=== PATIENT | male | born 1955 | race Caucasian/White ===

== ENCOUNTER 2021-05-14 05:23 | Inpatient (IN) | payer MEDICARE, OTHER, SELFPAY ==
[2021-05-14] VITALS (55 sets, daily range): BP systolic 77–128; BP diastolic 45–83; PULSE 38–56; RESP 4–22; TEMP 36.3–36.8; O2SAT 90–100; BMI 37.7
--- NOTE | 2021-05-14 | USCV_ITS ---
Transthoracic Echo John Blue Age: 65 Gender: M : 1955 Exam Date: 05/14/2021 08:40 Ordering Phys: Dung Ma Technologist: Exam Location[place] [facility] [place]: Unstable angina BP: 94 / 51 HR: 41 Rhythm: Sinus Technical Quality: Adequate MEASUREMENTS (Male / Female) Normal Values 2D ECHO LV Diastolic Diameter PLAX 4.0 cm 4.2 - 5.9 / 3.9 - 5.3 cm LV Systolic Diameter PLAX 2.8 cm IVS Diastolic Thickness 1.1 cm 0.6 - 1.0 / 0.6 - 0.9 cm IVS Systolic Thickness 1.3 cm LVPW Diastolic Thickness 1.1 cm 0.6 - 1.0 / 0.6 - 0.9 cm LVPW Systolic Thickness 1.4 cm LVOT Diameter 2.1 cm LV Ejection Fraction 2D Teich 51.4 % LV Ejection Fraction MOD 2C 67.4 % LV Ejection Fraction 2C AL 67.2 % LA Diameter 4.4 cm LA Width 4.1 cm LA Height 5.3 cm RA Width 3.4 cm RA Height 5.4 cm Aorta at Sinotubular Diameter 2.9 cm DOPPLER AV Peak Velocity 122.0 cm/s LVOT Peak Velocity 105.0 cm/s AV Area Cont Eq vti 2.7 cm squared AV Area Cont Eq pk 2.9 cm squared MV Area PHT 5.0 cm squared Mitral E to A Ratio 1.3 MV E' Velocity 47.0 cm/s Mitral E to MV E' Ratio 10.0 Mitral E to LV E' Lateral Ratio 8.8 Mitral E to LV E' Septal Ratio 11.9 TR Peak Velocity 265.0 cm/s TR Peak Gradient 28.1 mmHg TV Peak E Velocity 82.0 cm/s Right Atrial Pressure 3.0 mmHg Pulmonary Artery Systolic Pressu 31.1 mmHg FINDINGS Left Ventricle Normal left ventricular size, systolic function and wall thickness, with no regional wall motion abnormalities. Left ventricular ejection fraction is estimated at 60 %. Grade II diastolic dysfunction, moderately elevated filling pressures. Abnormal (paradoxical) septal motion consistent with postoperative status. Right Ventricle Normal right ventricular size and systolic function. Right ventricular systolic pressure 36 mmHg. Right Atrium Normal right atrial size. Aneurysmal interatrial septum. No ASD or PFO by color Doppler. Right atrial pressure estimated at 8 mmHg. Left Atrium Mildly increased left atrial size. Mitral Valve Structurally normal mitral valve. No mitral valve stenosis. No mitral valve regurgitation. Aortic Valve Aortic valve not well visualized. Probably trileaflet aortic valve. No aortic valve stenosis. No aortic valve regurgitation. Tricuspid Valve Structurally normal tricuspid valve. No tricuspid valve stenosis. Mild tricuspid valve regurgitation. Pulmonic Valve Structurally normal pulmonic valve. No pulmonary valve stenosis. Trace pulmonary valve regurgitation. Pericardium No pericardial effusion. Aorta Normal size aortic root and proximal ascending aorta. Normal- sized inferior vena cava with decreased CONCLUSIONS 1. Normal left ventricular size, systolic function and wall thickness, with no regional wall motion abnormalities. Left ventricular ejection fraction is estimated at 60 %. Grade II diastolic dysfunction, moderately elevated filling pressures. 2. Normal right ventricular size and systolic function. 3. Pulmonary artery pressure estimated at 36 mmHg. 4. Mild tricuspid valve regurgitation. 5. No prior similar studies to compare. Cande Gee MD (Electronically Signed) Final Date: 14 May 2021 10:57 S
--- NOTE | 2021-05-14 05:24 | XRR_ITS ---
PROCEDURE INFORMATION: Exam: XR Chest Exam date and time: 05/14/2021 5:24 AM Age: 65 years old Clinical indication: Pain; Chest pressure; Prior surgery; Surgery date: 6+ months; Surgery type: Cabg; Additional info: Cp TECHNIQUE: Imaging protocol: XR of the chest. Views: 1 view. COMPARISON: No relevant prior studies available. FINDINGS: Lungs: Minimal left lung base atelectasis or other infiltrate. Pleural spaces: Unremarkable. No pleural effusion. No pneumothorax. Heart/Mediastinum: No cardiomegaly. Bones/joints: Previous median sternotomy. XR/XR chest 1V portable [id number] IMPRESSION: Minimal left lung base atelectasis or other infiltrate. Radiation Dose CTDIVOL = (mGy): DLP = (mGy-cm)
--- NOTE | 2021-05-14 05:24 | ECG_ITS ---
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 Measurements Intervals [place] Rate: 44 P: 34 NV: 190 QRS: -4 QRSD: 94 T: 23 QT: 468 QTc: 403 Interpretive Statements SINUS BRADYCARDIA ST DEVIATION AND MODERATE T-WAVE ABNORMALITY, CONSIDER ANTERIOR ISCHEMIA No previous ECG available for comparison Electronically Signed On 05-14-2021 21:04:45 CDT by Cande Gee M.D. [id number]
--- NOTE | 2021-05-14 05:28 | W.ED.CHESTPA ---
Documented by User: Bianca Kern MD 05/14/21 05:34 HPI - Chest Pain General: Chief Complaint: Chest Pain Stated Complaint: chest pain Time Seen by Provider: 05/14/21 05:23 Source: patient and EMS Mode of arrival: EMS Limitations: no limitations History of Present Illness: HPI narrative: 65-year-old male has a history of coronary artery disease and had a CABG 4 years ago. States that over the last 2 days has been having chest pain that worsened tonight. He states that this pain started tonight roughly 2 hours ago with a pressure type pain center of his chest that went to his right neck. Denies any nausea or diaphoresis. He took a nitro at home and took the pain down to a 5 and had not noted nitro in route by EMS it took it down to 0. He also had aspirin in route. He denies any worsening factors. Denies any cough or fever. Associated symptoms: Deny abdominal pain, dyspnea, fever(s), nausea or vomiting Review of Systems Const: Denies: fever(s), chills, body aches or change in appetite Eyes: Denies: blurry vision or eye discomfort ENMT: Denies: throat pain or dental pain Card: Reports: chest pain Resp: Denies: dyspnea GI: Denies: abdominal pain, nausea, vomiting or diarrhea : Denies: dysuria Musc: Denies: neck pain or back pain Skin/Breast: Denies: rash Neuro: Denies: headache(s) Psych: Denies: depression Tristian/Lymph: Denies: easy bruising All/Imm: Denies: urticaria Physical Exam Const: COMMON NORMALS: no acute distress, patient oriented x3 and healthy appearing HENMT: COMMON NORMALS: normocephalic and atraumatic HEAD & SCALP: normocephalic and atraumatic Eye: COMMON NORMALS: Equal, round and reactive pupils present and EOMs intact bilaterally PUPIL: Yes Equal, round and reactive pupils present Neck/C-Spine: COMMON NORMALS: full ROM and supple Chest: COMMONS NORMALS: normal inspection of the chest and normal palpation of entire chest wall Resp: COMMON NORMALS: normal respiratory effort, No retractions, No use of accessory muscles and clear to auscultation bilaterally AUSCULTATION: clear to auscultation bilaterally Cardio: COMMON NORMALS: regular rate, regular rhythm and No murmurs present (Cardio) RATE: regular rate RHYTHM: regular rhythm GI: COMMON NORMALS: Normal to inspection, nondistended, normoactive bowel sounds present, Soft to palpation, non-tender and no masses PALPATION: Yes Soft to palpation Extremity: COMMON NORMALS: normal to inspection and full ROM Neuro: COMMON NORMALS: patient oriented x3, moves all extremities and no focal motor deficits Psych: COMMON NORMALS: mental status grossly normal, Normal thought process present and cooperative THOUGHT PROCESS: Normal thought process present Skin: COMMON NORMALS: no rashes or lesions noted and no wounds GENERAL SKIN EXAM: no rashes or lesions noted Course Vital Signs: Vital signs: Vital Signs Temperature 97.7 F 05/14/21 05:23 Pulse Rate 44 L 05/14/21 06:15 Respiratory Rate 22 H 05/14/21 06:50 Blood Pressure 100/55 05/14/21 06:15 Pulse Oximetry 98 05/14/21 06:15 MDM - Chest Pain Lab Data: Labs: Lab Results 05/14/21 05/14/21 05/14/21 05:25 05:25 05:25 WBC 7.3 10^3/uL 10^3/ uL (4.0-10.0) RBC 4.58 10^6/uL 10^6 /uL (4.1-5.3) Hgb 15.1 g/dL g/dL (11.7-16.6) Hct 45.1 % % (42.0-52.0) MCV 98.5 fl H fl (80-94) MCH 33.0 pg pg (28.0-34.0) MCHC 33.5 g/dL g/dL (30.0-36.0) RDW 12.7 % % (12.1-15.1) Plt Count 180 10^3/cmm 10^3 /cmm (130-400) MPV 11.0 fL H fL (7.4-10.4) Neut % (Auto) 56.7 % % Lymph % (Auto) 26.7 % % [place] % (Auto) 12.3 % % Eos % (Auto) 3.6 % % Baso % (Auto) 0.4 % % Neut # (Auto) 4.13 10^3/uL 10^3 /uL (1.8-7.7) Lymph # (Auto) 2.0 10^3/uL 10^3/ uL (0.8-4.8) [place] # (Auto) 0.9 10^3/uL 10^3/ uL (0.2-0.9) Eos # (Auto) 0.3 10^3/uL 10^3/ uL (0.0-0.8) Baso # (Auto) 0.0 10^3/uL 10^3/ uL (0.0-0.1) Nucleated RBC % (a uto) 0 % % Nucleated RBCs # 0.0 /100WBC /100W BC PT INR APTT Sodium 137 mmol/L mmol/L (136-145) Potassium 4.0 mmol/L mmol/L (3.5-5.1) Chloride 102 mmol/L mmol/L (98-107) Carbon Dioxide 24 mmol/L mmol/L (22-29) Anion Gap 15.0 (5-19) BUN 23 mg/dL mg/dL (8-23) Creatinine 1.3 mg/dL H mg/dL (0.7-1.2) GFR Calculation 55.8 mL/min L mL/ min (90-130) Glucose 90 mg/dL mg/dL (65-115) Calculated Osmolal ity 287 mOsm/kg mOsm/ kg (285-295) Calcium 8.9 mg/dL mg/dL (8.5-10.5) Total Bilirubin 0.3 mg/dL mg/dL (0.15-1.2) AST 13 U/L U/L (0-40) ALT 6 U/L U/L (0-41) Alkaline Phosphata se 51 IU/L IU/L (40-130) Troponin T Baselin e 10 ng/L ng/L (0-15) NT-Pro-B Natriuret Pep Total Protein 6.2 g/dL L g/dL (6.6-8.7) Albumin 3.9 g/dL g/dL (3.5-5.2) Globulin 2.3 g/dL g/dL (1.3-4.6) Lipase 05/14/21 05/14/21 05:25 05:25 WBC RBC Hgb Hct MCV MCH MCHC RDW Plt Count MPV Neut % (Auto) Lymph % (Auto) [place] % (Auto) Eos % (Auto) Baso % (Auto) Neut # (Auto) Lymph # (Auto) [place] # (Auto) Eos # (Auto) Baso # (Auto) Nucleated RBC % (a uto) Nucleated RBCs # PT 12.60 SECONDS SEC ONDS (12.1-14.9) INR 0.91 (0.8-1.2) APTT 25.9 SECONDS SECO NDS (23.9-36.7) Sodium Potassium Chloride Carbon Dioxide Anion Gap BUN Creatinine GFR Calculation Glucose Calculated Osmolal ity Calcium Total Bilirubin AST ALT Alkaline Phosphata se Troponin T Baselin e NT-Pro-B Natriuret Pep 193 pg/mL H pg/mL (0-125) Total Protein Albumin Globulin Lipase 158 U/L H U/L (13-60) EKG Data^: EKG 1: Attestation: I personally reviewed and interpreted this EKG as follows: EKG interpretation date: 05/14/21 EKG interpretation time: 05:30 Interpretation: sinus genoveva hr [address] elevation qrs 89 qtc 418 Discharge Plan Discharge Patient Disposition: Admitted As Inpatient Clinical Impression: Unstable angina pectoris Chest pain Qualifiers: Chest pain type: other chest pain Qualified Code(s): R07.89 - Other chest pain Condition: Stable Coding Level of Care Code ED Dice Table Person for Chg Fwd Exam Comprehensive Documented by User: Dung Ma 05/14/21 09:32 HPI - Chest Pain General: Chief Complaint: Chest Pain Stated Complaint: chest pain Time Seen by Provider: 05/14/21 05:23 Course Vital Signs: Vital signs: Vital Signs Temperature 97.7 F 05/14/21 05:23 Pulse Rate 44 L 05/14/21 06:15 Respiratory Rate 22 H 05/14/21 06:50 Blood Pressure 100/55 05/14/21 06:15 Pulse Oximetry 98 05/14/21 06:15 MDM - Chest Pain MDM Narrative: Medical decision making narrative: This patient was signed out to myself Dr. Ma by Dr. Kern at 0550 on 05/14/2021 patient just arrived emergency department currently reporting chest pains we will start the patient resting nitroglycerin to see if there is any improvement of his pain or discomfort his EKG was obtained revealed a sinus bradycardia rate of [address] segment elevations nor depressions appreciated. We will continue to follow. On assessment, patient still complaining of chest pain despite being provided nitroglycerin which she became slightly hypotensive 80s over 50s. Patient has been consistently bradycardic on arrival current heart rate is 46 patient reports that he has a pre-existing history of this before from his previous heart attack approximately 5 years ago. 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 In which per his request if he would need to be admitted he like to be transferred back there. Patient continues to have pain currently rated at a 4 out of 10 pain scale. Will be providing him some intravenous morphine as well as IV fluids to maintain a reasonable blood pressure greater than 80/50. I will continue to follow with anticipation need for transfer or admission. Notified by nursing staff the patient's had another episode of what appears to be going to a first-degree block with his heart rate dropped down to the 30 range which patient did have episodes of increased chest pain and discomfort. First cardiac troponins come back unremarkable however patient has been developing symptoms suggestive of unstable angina. He reports that the pain comes and goes away but she does report that the nitroglycerin that he took prior to arrival took the pain away just for a temporary amount of time which he has returned currently patient does report pain but no palpitations at this time due to patient having a high heart score of 6 as well as his cardiac symptoms will need to be admitted or transferred. Spoke to [facility] per patient's request as his shop assistant is Dr. Monk in which reports they have no current open telemetry cardiac beds available which they are currently boarding over 35 people in the emergency department. Will discuss with the patient with potential need for acceptance admission here to our facility. The patient remains in guarded condition at this time. Spoke to on-call cardiology as well as the hospitalist Dr. Aaron recommends admission to the intensive care unit for further evaluation management. Medical records will be obtained from [facility] as well as an echocardiogram be obtained. Lab Data: Labs: Lab Results 05/14/21 05/14/21 05/14/21 05:25 05:25 05:25 WBC 7.3 10^3/uL 10^3/ uL (4.0-10.0) RBC 4.58 10^6/uL 10^6 /uL (4.1-5.3) Hgb 15.1 g/dL g/dL (11.7-16.6) Hct 45.1 % % (42.0-52.0) MCV 98.5 fl H fl (80-94) MCH 33.0 pg pg (28.0-34.0) MCHC 33.5 g/dL g/dL (30.0-36.0) RDW 12.7 % % (12.1-15.1) Plt Count 180 10^3/cmm 10^3 /cmm (130-400) MPV 11.0 fL H fL (7.4-10.4) Neut % (Auto) 56.7 % % Lymph % (Auto) 26.7 % % [place] % (Auto) 12.3 % % Eos % (Auto) 3.6 % % Baso % (Auto) 0.4 % % Neut # (Auto) 4.13 10^3/uL 10^3 /uL (1.8-7.7) Lymph # (Auto) 2.0 10^3/uL 10^3/ uL (0.8-4.8) [place] # (Auto) 0.9 10^3/uL 10^3/ uL (0.2-0.9) Eos # (Auto) 0.3 10^3/uL 10^3/ uL (0.0-0.8) Baso # (Auto) 0.0 10^3/uL 10^3/ uL (0.0-0.1) Nucleated RBC % (a uto) 0 % % Nucleated RBCs # 0.0 /100WBC /100W BC PT INR APTT Sodium 137 mmol/L mmol/L (136-145) Potassium 4.0 mmol/L mmol/L (3.5-5.1) Chloride 102 mmol/L mmol/L (98-107) Carbon Dioxide 24 mmol/L mmol/L (22-29) Anion Gap 15.0 (5-19) BUN 23 mg/dL mg/dL (8-23) Creatinine 1.3 mg/dL H mg/dL (0.7-1.2) GFR Calculation 55.8 mL/min L mL/ min (90-130) Glucose 90 mg/dL mg/dL (65-115) Calculated Osmolal ity 287 mOsm/kg mOsm/ kg (285-295) Calcium 8.9 mg/dL mg/dL (8.5-10.5) Total Bilirubin 0.3 mg/dL mg/dL (0.15-1.2) AST 13 U/L U/L (0-40) ALT 6 U/L U/L (0-41) Alkaline Phosphata se 51 IU/L IU/L (40-130) Troponin T Baselin e 10 ng/L ng/L (0-15) NT-Pro-B Natriuret Pep Total Protein 6.2 g/dL L g/dL (6.6-8.7) Albumin 3.9 g/dL g/dL (3.5-5.2) Globulin 2.3 g/dL g/dL (1.3-4.6) Lipase 05/14/21 05/14/21 05:25 05:25 WBC RBC Hgb Hct MCV MCH MCHC RDW Plt Count MPV Neut % (Auto) Lymph % (Auto) [place] % (Auto) Eos % (Auto) Baso % (Auto) Neut # (Auto) Lymph # (Auto) [place] # (Auto) Eos # (Auto) Baso # (Auto) Nucleated RBC % (a uto) Nucleated RBCs # PT 12.60 SECONDS SEC ONDS (12.1-14.9) INR 0.91 (0.8-1.2) APTT 25.9 SECONDS SECO NDS (23.9-36.7) Sodium Potassium Chloride Carbon Dioxide Anion Gap BUN Creatinine GFR Calculation Glucose Calculated Osmolal ity Calcium Total Bilirubin AST ALT Alkaline Phosphata se Troponin T Baselin e NT-Pro-B Natriuret Pep 193 pg/mL H pg/mL (0-125) Total Protein Albumin Globulin Lipase 158 U/L H U/L (13-60) Critical Care Time Critical Care Time: Critical Care Time: No Total Critical Care Time: 35 Discharge Plan Discharge Patient Disposition: Admitted As Inpatient Clinical Impression: Unstable angina pectoris Chest pain Qualifiers: Chest pain type: other chest pain Qualified Code(s): R07.89 - Other chest pain Condition: Stable Coding Level of Care Code ED Dice Table Person for Chg Fwd Exam Comprehensive
[2021-05-14] MEDS: nitroglycerin 0.4 mg sublingual Tablet SUBLINGUAL ×3 (05:55→06:15)
[2021-05-14 05:59] LABS: Troponin(5th) Baseline 10 ng/L (0-15)
[2021-05-14 06:00] LABS: Alanine Aminotransferase 6 U/L (0-41); Albumin Level 3.9 g/dL (3.5-5.2); Alkaline Phosphatase 51 IU/L (40-130); Aspartate Amino Transferase 13 U/L (0-40); Blood Urea Nitrogen 23 mg/dL (8-23); Calcium 8.9 mg/dL (8.5-10.5); Carbon Dioxide 24 mmol/L (22-29); Chloride 102 mmol/L (98-107); Globulin 2.3 g/dL (1.3-4.6); Glomerular Filtration Rate 55.8 mL/min (90-130); Glucose 90 mg/dL (65-115); Osmolality Calculated 287 mOsm/kg (285-295); Sodium 137 mmol/L (136-145); Total Bilirubin 0.3 mg/dL (0.15-1.2); Total Protein 6.2 g/dL (6.6-8.7)
[2021-05-14 06:15] LABS: INR 0.91 (0.8-1.2)
[2021-05-14] MEDS: sodium chloride 0.9% 1,000 ML 999 ML IV (06:15)
[2021-05-14 06:16] LABS: Partial Thromboplastin Time 25.9 SECONDS (23.9-36.7)
[2021-05-14 06:31] LABS: Basophils % 0.4 %; Eosinophils # 0.3 10^3/uL (0.0-0.8); Eosinophils % 3.6 %; Hematocrit 45.1 % (42.0-52.0); Hemoglobin 15.1 g/dL (11.7-16.6); Lymphocytes % 26.7 %; Mean Corpuscular HGB Conc 33.5 g/dL (30.0-36.0); Mean Corpuscular Volume 98.5 fl (80-94); Monocytes # 0.9 10^3/uL (0.2-0.9); Monocytes % 12.3 %; Neutrophils # 4.13 10^3/uL (1.8-7.7); Neutrophils % 56.7 %; Nucleated Red Blood Cells % 0 %; Platelet Count 180 10^3/cmm (130-400); Red Blood Count 4.58 10^6/uL (4.1-5.3); Red Cell Distribution Width 12.7 % (12.1-15.1); White Blood Count 7.3 10^3/uL (4.0-10.0)
[2021-05-14 06:44] LABS: Lipase 158 U/L (13-60); NT Pro B Type Natriuretic Pept 193 pg/mL (0-125)
[2021-05-14] MEDS: morphine 4 mg/mL SDV 1 mL 2 MG IVP ×4 (06:50→23:39)
[2021-05-14] MEDS: heparin 5,000 unit/mL INJ 1 mL 4000 UNIT IVP (08:12)
[2021-05-14] MEDS: nitroglycerin drip 50 MG/250 ML PREMIX IV (08:22)
[2021-05-14] MEDS: heparin drip 25,000 UNIT/500 ML PREMIX 31.5 UNIT IV (08:32)
--- NOTE | 2021-05-14 09:00 | ECG_ITS ---
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 Measurements Intervals [place] Rate: 41 P: 48 DC: 193 QRS: 8 QRSD: 88 T: 40 QT: 476 QTc: 397 Interpretive Statements SINUS BRADYCARDIA Compared to ECG 05/14/2021 05:48:46 No significant changes Electronically Signed On 05-14-2021 21:25:59 CDT by Cande Gee M.D. [email or web address]
--- NOTE | 2021-05-14 09:02 | PM.HP ---
Providers/Chief Complaint Chief Complaint: chest pain History of Present Illness John Blue is a 65 year old male with past medical history of 4 vessel CABG 4 years ago, asthma, bilateral hip replacement, 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 He states the pain woke him up this morning while he was asleep around 4 AM. It was mainly occurring in the right side of his jaw and back of the teeth. He says he has had this pain about three times in the last 2 days however at first it lasted a couple hours, the second time it lasted 15 minutes and now the third time it is intermittent comes and goes. It is on both sides of the sternum in the middle of his chest. Describes it as a burning/pressure-like pain. He was given three nitros on route which decreased the intensity but the pain did not go away completely. He says he has nausea at baseline and therefore takes Zofran at home and Antivert daily for his M?ni?re's therefore he is unable to say if the nausea is associated with his chest pain or not. He also does mention that about 6 months ago that he started passing out but is unsure why. He sees a data entry technician in [place] and his name is Dr. Monk. Him and his live in [place]. He denies abdominal pain, shortness of breath, leg swelling, cough at this time when seen. At this current time patient is on a nitro drip and states he is having chest pain 2 out of 10 in intensity. Pain is not associated with movement or taking deep breaths. He also mentions to me he has had a 50 pound weight loss in the last few months which was intentional. ED course: Blood pressure 100/55, pulse rate 44, respirate 22, temperature 97.7, saturating 98% on room air. While he was in the ER he was given a nitro patch and his blood pressure dropped to 80/50. He had two recurrences of pain during that time as well. There were ST changes in V1 to V3. First troponin was negative. There was also a transient first-degree heart block which resolved on the second EKG. Patient was then placed on a nitro drip and heparin drip was also started. Echo was ordered stat and data entry technician on-call was called. There were two EKGs done showing sinus bradycardia with heart rate of 40s. Past medical history Four-vessel CABG 4 years ago Asthma M?ni?re's disease Hyperlipidemia Debi's thyroiditis Right knee arthritis Past surgical history Bilateral hip replacement Cholecystectomy 2 years ago plus ERCP Hernia surgery 2 years ago Social history Former smoker, quit 11 years ago but smoked for 40 years No alcohol use Denies any other illicit drug use Lives at home with his Ellie. Home medications Bumex 1 mg daily Zofran 8 mg as needed Artificial tears Levothyroxine 200 daily but on Saturday and Saturday 100 mg Valium 5 mg every morning Bupropion 75 mg - 2 tablets in morning, 2 tablets at night Potassium chloride 20 mill equivalent, takes it Saturday, Saturday, , Saturday. Skips all other days Zetia 10 mg every day Percocet 10?3 25, 1 tablet at bedtime daily Nadolol 40 mg daily Flovent inhaler daily Vitamin D 2000 daily Vitamin E 400 daily Probiotic daily Albuterol inhaler as needed Aspirin 325 daily Tadalafil 5 mg daily for his enlarged prostate. He does not take it for erectile dysfunction. Review of Systems General: Reports: 10 or more systems reviewed and unremarkable except in HPI and below Medications/Allergies Home Medications Medication Instructions Recorded Confirmed Last Taken Type albuterol sulfate 2 puff INHALATION Q6H PRN 05/14/21 05/14/21 Unknown History alirocumab [Praluent Pen] 150 mg SUBCUT Q14D MDD see 05/14/21 05/14/21 05/03/21 History pharmacy comment aspirin [EC Aspirin] 325 mg PO DAILY 05/14/21 05/14/21 05/14/21 History bumetanide 1 mg PO DAILY 05/14/21 05/14/21 05/14/21 History bupropion HCl 150 mg PO BID 05/14/21 05/14/21 05/14/21 History [id number] 1 drp OPHTHALMIC (EYE) BID 05/14/21 05/14/21 05/14/21 History [Refresh Optive Tomas-3 (PF)] cyclosporine [Restasis] 1 drp OPHTHALMIC (EYE) BID 05/14/21 05/14/21 05/14/21 History diazepam 5 - 10 mg PO DAILY 05/14/21 05/14/21 05/14/21 History ezetimibe 10 mg PO DAILY 05/14/21 05/14/21 05/14/21 History levothyroxine See Rx Instructions .ROUTE .COMPLEX 05/14/21 05/14/21 05/13/21 History levothyroxine See Rx Instructions .ROUTE .COMPLEX 05/14/21 05/14/21 05/14/21 History 200 mcg meclizine 100 mg PO QID 05/14/21 05/14/21 05/14/21 History nadolol 40 mg PO DAILY MDD see pharmacy 05/14/21 05/14/21 05/14/21 History comment ondansetron HCl 8 mg PO DAILY 05/14/21 05/14/21 05/14/21 History potassium chloride See Rx Instructions .ROUTE .COMPLEX 05/14/21 05/14/21 05/14/21 History tadalafil 5 mg PO DAILY PRN 05/14/21 05/14/21 Unknown History Allergies Allergy/AdvReac Type Severity Reaction Status Date / Time furosemide [From Lasix] Allergy Unknown Verified 05/14/21 05:29 mycins Allergy Unknown Uncoded 05/14/21 05:29 PFSH Acute PFSH: Medical History (Updated 05/14/21 @ 11:04 by Cande Gee MD) CAD (coronary artery disease) Former smoker HTN (hypertension) Hyperlipidemia Hypothyroidism Meniere disease Surgical History (Updated 05/14/21 @ 11:01 by Cande Gee MD) History of hip replacement Hx of cataract surgery S/P CABG x 4 Social History (Updated 05/14/21 @ 11:19 by Cande Gee MD) Smoking and tobacco status: former smoker Quit status (tobacco): has quit using tobacco Household members: spouse Vitals/I&O/Wt Last Vital Signs Temp 97.7 F 05/14/21 05:23 Pulse 44 L 05/14/21 06:15 Resp 22 H 05/14/21 06:50 BP 100/55 05/14/21 06:15 Pulse Ox 98 05/14/21 06:15 05/13/21 05/14/21 05/14/21 22:59 06:59 14:59 Intake Total 1000 / 1000 Balance 1000 / 1000 Weight last 48 hrs Weight 112.491 kg Physical Exam Narrative: EXAM NARRATIVE: General: Alert oriented x3, patient seen sitting up in bed appearing comfortable at this time but states he is having 2 out of 10 chest pain. HEENT: Normocephalic, atraumatic, EOMI, breathing room air. Wearing eyeglasses Cardio: Bradycardic, normal S1-S2, no murmurs rubs gallops, mid sternotomy scar noted. Respiratory: Good bilateral air entry, no wheezes no rhonchi appreciated GI: Abdomen soft, nontender, nondistended, bowel sounds + Behavior: Appropriate and cooperative Extremities: No cyanosis, trace edema bilateral lower extremities, wearing a right knee brace. present at bedside when seen. Data : 05/14/21 05:25 05/14/21 05:25 A&P Assessment and plan (1) Unstable angina pectoris: Status: Acute (2) Hypothyroidism: Status: Acute (3) Statin intolerance: Status: Acute (4) HTN (hypertension): Status: Acute Qualifiers: Hypertension type: primary hypertension Qualified Code(s): I10 - Essential (primary) hypertension (5) Hyperlipidemia: Status: Acute Qualifiers: Hyperlipidemia type: mixed hyperlipidemia Qualified Code(s): E78.2 - Mixed hyperlipidemia (6) CAD (coronary artery disease): Status: Acute Qualifiers: Coronary Disease-Associated Artery/Lesion type: bypass graft [place] vs. transplanted heart: [place] heart Associated angina: with unstable angina Qualified Code(s): I25.700 - Atherosclerosis of coronary artery bypass graft(s), unspecified, with unstable angina pectoris Additional A&P Information #Unstable angina #History of four-vessel CABG, coronary artery disease #Hyperlipidemia #Hypertension #Statin intolerance -on Praluent -Patient did have a normal stress test a year ago. His chest pain is not reproducible at this time. He has been having intermittent chest pain for about 3 days with intermittent sharp pain. His chest pain woke up this morning from his sleep. Nitro did not relieve the pain but did decrease the intensity. He was given aspirin 325 on arrival to the ER and has been started on heparin drip. -First troponin negative, second troponin pending. ?Continue nitroglycerin drip ?Request records from [place] ?Stat echo ordered this morning, results pending ?Patient also having episodes of bradycardia 36 to 40s range. ?Cardiology on board. Plan is most likely angiogram today at some point. - We will check lipid profile -We will admit patient to ICU at this time -Currently holding all home medications. We will continue them after his angiogram. Continue to hold nadolol secondary to bradycardia. #Hypothyroidism - Continue levothyroxine, will restart after angiogram. Fluids: Not indicated Electrolytes replete as needed Nutrition: N.p.o. Activity: Bedrest DVT prophylaxis: Patient is currently on a heparin drip. Attestations Medical Necessity Statement*: Going for angiogram today. Most likely will cross two midnights. Time Spent in Patient Care: Greater than 35 minutes (>than 50% of time spent in counselling and/or direct pt care on unit). Coding Level of Care Code Acute Eyeglass Inspector for Chg Fwd Diagnoses Unstable angina pectoris I20.0 Hypothyroidism E03.9 Statin intolerance Z78.9 HTN (hypertension) I10 Hypertension type: primary hypertension Hyperlipidemia E78.2 Hyperlipidemia type: mixed hyperlipidemia CAD (coronary artery disease) I25.700 Coronary Disease-Associated Artery/Lesion type: bypass graft [place] vs. transplanted heart: [place] heart Associated angina: with unstable angina
--- NOTE | 2021-05-14 09:19 | P.CONIM_ITS ---
Providers/Reason For Consult Consulting Physician/Specialty*: Dr. Gee, cardiology Reason for Consult*: Unstable angina Requesting Physician: Dr. Ma Attending Physician: Dr. Hedrick History of Present Illness History of Present Illness John Blue is a 65 year old male with past medical history of coronary artery disease s/p CABG x3 in April 2017 (anatomy unknown) at [facility] in [place] by Dr. Monk, hypertension, hyperlipidemia, history of statin intolerance (arthralgias and myalgias), former smoker (quit after smoking for 40 years), history of unspecified palpitations for which he is on nadolol, M?ni?re's disease, right knee osteoarthritis, status post bilateral hip replacement and hypothyroidism. He lives in [place] and was here over the weekend for [employer]. He walked about 1-1/2 miles yesterday taking photographs. He tells me for the past 2 days he has noticed episode of right jaw discomfort which he attributed to his teeth on and off that lasted few minutes. At around 4 this morning he woke up after sleeping for about 2 hours with right jaw and neck discomfort as well as left precordial chest discomfort rated at 8/10 in intensity associated with hyperventilation and diaphoresis. No nausea or vomiting. He took nitro at home that took the pain down to 5/10 and then EMS was called. Since arrival to the ER he had had few other episodes of chest discomfort for which he was started on nitroglycerin drip. His heart rate is running in 40s and I am told that at the time of worsening of his chest discomfort dropped down in 30s. At baseline patient's blood pressure is 110s over 60s and heart rate runs in 60s. EKG on arrival showed sinus bradycardia at 44 bpm with normal axis with minimal ST depression and T wave inversion V1 to V3. Subsequent EKG with sinus bradycardia at 41 bpm with T wave inversion in V1 and V2.Patient denies having any sick contacts. No URI or UTI-like symptoms prior to this. He has been vaccinated with [employer] COVID-19 vaccine. Review of Systems Const: Denies: fever(s), chills, body aches or change in appetite Eyes: Denies: blurry vision or eye discomfort ENMT: Denies: throat pain or dental pain Card: Reports: chest pain Resp: Denies: dyspnea, productive cough, non-productive cough, pain on inspiration or chest congestion GI: Denies: abdominal pain, nausea, vomiting, hematemesis, diarrhea or hematochezia : Denies: dysuria or hematuria Musc: Denies: neck pain, back pain or extremity swelling Skin/Breast: Denies: rash Neuro: Denies: headache(s) Psych: Denies: depression Tristian/Lymph: Denies: easy bruising All/Imm: Denies: urticaria Meds/Allergies Home Medications and Allergies Home Medications Medication Instructions Recorded Confirmed Last Taken Type albuterol sulfate 2 puff INHALATION Q6H PRN 05/14/21 05/14/21 Unknown History alirocumab [Praluent Pen] 150 mg SUBCUT Q14D MDD see 05/14/21 05/14/21 05/03/21 History pharmacy comment aspirin [EC Aspirin] 325 mg PO DAILY 05/14/21 05/14/21 05/14/21 History bumetanide 1 mg PO DAILY 05/14/21 05/14/21 05/14/21 History bupropion HCl 150 mg PO BID 05/14/21 05/14/21 05/14/21 History [id number] 1 drp OPHTHALMIC (EYE) BID 05/14/21 05/14/21 05/14/21 History [Refresh Optive Tomas-3 (PF)] cyclosporine [Restasis] 1 drp OPHTHALMIC (EYE) BID 05/14/21 05/14/21 05/14/21 History diazepam 5 - 10 mg PO DAILY 05/14/21 05/14/21 05/14/21 History ezetimibe 10 mg PO DAILY 05/14/21 05/14/21 05/14/21 History levothyroxine See Rx Instructions .ROUTE .COMPLEX 05/14/21 05/14/21 05/13/21 History levothyroxine See Rx Instructions .ROUTE .COMPLEX 05/14/21 05/14/21 05/14/21 History 200 mcg meclizine 100 mg PO QID 05/14/21 05/14/21 05/14/21 History nadolol 40 mg PO DAILY MDD see pharmacy 05/14/21 05/14/21 05/14/21 History comment ondansetron HCl 8 mg PO DAILY 05/14/21 05/14/21 05/14/21 History potassium chloride See Rx Instructions .ROUTE .COMPLEX 05/14/21 05/14/21 05/14/21 History tadalafil 5 mg PO DAILY PRN 05/14/21 05/14/21 Unknown History Allergies Allergy/AdvReac Type Severity Reaction Status Date / Time furosemide [From Lasix] Allergy Unknown Verified 05/14/21 05:29 mycins Allergy Unknown Uncoded 05/14/21 05:29 Current Medications Current Medications Generic Name Dose Route Start Last Admin Trade Name Freq PRN Reason Stop Dose Admin Heparin Sodium/Sodium Chloride 25,000 unit in 500 mls @ 0 mls/hr 05/14/21 07:45 05/14/21 08:32 Heparin Drip IV 14 unit/kg/hr .Q0M JEANETH 31.5 mls/hr Administration Protocol Per Protocol Nitroglycerin/Dextrose 50 mg in 250 mls @ 0 mls/hr 05/14/21 07:45 05/14/21 08:22 Nitroglycerin Drip IV 10 mcg/min .Q0M JEANETH 3 mls/hr Administration Protocol Per Protocol Morphine Sulfate 2 mg 05/14/21 06:25 05/14/21 07:25 Morphine 4 Mg/Ml Sdv 1 Ml IVP 2 mg Q5M PRN Administration SEVERE PAIN Nitroglycerin 0.4 mg 05/14/21 05:43 05/14/21 06:15 Nitroglycerin 0.4 Mg Sublingual Tablet SUBLINGUAL 0.4 mg Q5M PRN Administration CHEST PAIN PFSH Acute PFSH: Medical History (Updated 05/14/21 @ 11:04 by Cande Gee MD) CAD (coronary artery disease) Former smoker HTN (hypertension) Hyperlipidemia Hypothyroidism Meniere disease Surgical History (Updated 05/14/21 @ 11:01 by Cande Gee MD) History of hip replacement Hx of cataract surgery S/P CABG x 4 Social History (Updated 05/14/21 @ 11:19 by Cande Gee MD) Smoking and tobacco status: former smoker Quit status (tobacco): has quit using tobacco Household members: spouse Vitals/I&O/Wt Last Vital Signs Temp 97.7 F 05/14/21 05:23 Pulse 44 L 05/14/21 06:15 Resp 22 H 05/14/21 06:50 BP 100/55 05/14/21 06:15 Pulse Ox 98 05/14/21 06:15 05/13/21 05/14/21 05/14/21 22:59 06:59 14:59 Intake Total 1000 / 1000 Balance 1000 / 1000 Weight last 48 hrs Weight 248 lb Physical Exam Narrative: EXAM NARRATIVE: GENERAL: obese man lying in bed in no acute distress HEENT: Pupils equal round reactive to light. No pallor or icterus. NECK: central trachea, No JVD. No carotid bruit. CARDIOVASCULAR SYSTEM: S1-S2 regular. . No murmur rubs or gallops. RESPIRATORY SYSTEM: Chest clear to auscultation. No wheezes rhonchi or rubs heard. No use of accessory muscles. Midline sternotomy scar noted. ABDOMEN: Soft, nontender and nondistended. Normal bowel sounds present. EXTREMITIES: No cyanosis or clubbing. No edema. No signs of chronic venous insufficiency. Right knee in brace DIDACTIC INSTRUCTOR: Patient is alert oriented ?3. No focal neurological deficits. SKIN: Normal turgor and temperature. No breakdown, rash or nail changes noted. PSYCH: Normal insight and judgment. A&P Assessment and plan (1) Unstable angina pectoris: Patient present presented with chest pain with 2-day history of intermittent jaw pain. There is some reproducible chest pain which is different from chest pain that he had yesterday. -Patient had a normal stress test a year or 2 ago due to atypical transient chest pain that was thought to be musculoskeletal. -Given patient's history there is concern for unstable angina. We will treated as non-ST elevation ACS -Patient received aspirin 324 mg on arrival to ER and has been started on heparin drip. -Continue nitroglycerin drip. -Records from [facility] are pending. Echo did not reveal any significant regional wall motion abnormalities. LV function is preserved. -I discussed with patient option of coronary angiogram versus repeating another stress test. -Given the fact that he has had a normal stress test before I think it would be prudent to do coronary angiogram at this point. Patient and are agreeable with the plan. -I discussed the patient with Dr. Ni and plan is to proceed with coronary angiogram later today. Status: Acute (2) CAD (coronary artery disease): Status: Acute Qualifiers: Associated angina: with unstable angina Coronary Disease-Associated Artery/Lesion type: bypass graft [place] vs. transplanted heart: [place] heart Qualified Code(s): I25.700 - Atherosclerosis of coronary artery bypass graft(s), unspecified, with unstable angina pectoris (3) HTN (hypertension): Status: Acute Qualifiers: Hypertension type: primary hypertension Qualified Code(s): I10 - Essential (primary) hypertension (4) Hyperlipidemia: On Pralulent Status: Acute Qualifiers: Hyperlipidemia type: mixed hyperlipidemia Qualified Code(s): E78.2 - Mixed hyperlipidemia (5) Statin intolerance: Status: Acute Additional A&P Information Chronic kidney disease (Cr-1.3 today; baseline slightly increased) Bradycardia :hold nadolol Meniere's disease Thank you for allowing me to participate in patient's care. Please feel free to call with questions or concerns. Consult Attestations Time Spent in Patient Care: Greater than 35 minutes (>than 50% of time spent in counselling and/or direct pt care on unit) . Coding Level of Care Code Acute Deboning Team Leader for Dorothea Menendezd Diagnoses Unstable angina pectoris I20.0 CAD (coronary artery disease) I25.700 Associated angina: with unstable angina Coronary Disease-Associated Artery/Lesion type: bypass graft [place] vs. transplanted heart: [place] heart HTN (hypertension) I10 Hypertension type: primary hypertension Hyperlipidemia E78.2 Hyperlipidemia type: mixed hyperlipidemia Statin intolerance Z78.9
[2021-05-14 09:50] LABS: Procalcitonin 0.05 ng/mL (0-0.5)
[2021-05-14 09:55] LABS: Troponin 5 2HR 9.37 ng/L (0-15)
[2021-05-14 09:59] LABS: Troponin 5 2HR Delta -0.63 ABS# (0-10)
[2021-05-14 10:28] LABS: SARS Covid-2 Antigen Negative (Negative)
--- NOTE | 2021-05-14 11:02 | XACV_ITS ---
Exam Room: [facility] Ht: 173 cm Wt: 112 kg BSA: 2.37 m2 Gender: Male : 1955 Any Known Allergies: Other Exam Priority: Routine Procedure(s): Procedure Description: Diagnostic procedure Procedure Description: Venous Graft Catheterization Procedure Description: GUSTAFSON Graft Catheterization Procedure Description: Coronary Angiography Diagnostic Cath Status: Elective Diagnostic Findings * Left Main has no disease. * Circumflex has no disease. * Proximal Left Anterior Descending: total occlusion, WENDY: 0 flow. * Left Internal Mammary Artery to Mid Left Anterior Descending graft: patent. * Distal Right Coronary Artery: total occlusion, WENDY: 0 flow. * Ascending Aorta to Right Posterior AV graft: patent. * First Obtuse Marginal Branch Segment: severe 90% stenosis, WENDY: 3 flow. * Ascending Aorta to Lateral First Obtuse Marginal Branch Segment graft: patent. * Three grafts visualized. * Coronary angiography shows right dominance. Conclusions 1. There is total occlusion coronary artery disease with two vessel disease. 2. Three coronary grafts visualized: all grafts patent. 3. Patient has prior CABG. Recommendations * Continue current medical management and risk factor modification. Pressures Phase:Rest AO : 137 / 86 ( 105 ) @ 12:35:00 PM 252 / 129 ( 137 ) @ 12:41:00 PM Clinical Evaluation EBL: 5mL-10mL Procedural Details Procedure Consent Obtained. Pre-Procedure Time Out. Identified patient by full name and date of as verbalized by the patient/guarantor. Does the consent match the physician's order: Yes. Accurate & Complete Informed Consent: Yes. Inpatient/Outpatient History & Physical on Chart: Yes. If H&P is completed, is and addenduem needed: No; If yes, is the addendum complete: N/A. Visualize and Verify Site with Patient/Guarantor: N/A. Relevant Radiology Images available: Yes. Pre-op teaching completed and patient verbalized understanding. The risks, benefits, and alternatives of sedation and/or procedure were discussed by physician. The patient agrees to continue. Procedure started. Correct patient, site and procedure confirmed by cath team. Current diagnosis: Unstable angina. PERRLA. Strong, equal hand ecological modeler bilaterally. Lungs clear x 5 lobes. IV Site on Arrival: 18 gauge in the left anticubital. IV Fluids: 0.9% NaCl at KVO. 0 mL infused prior to prosthetics lab technician. Pre Procedural Pulses: bilateral dorsalis pedis was 2+. Pre Procedural Pulses: bilateral posterior tibial was 2+. Pre Procedural Pulses: right radial was 3+. Oxygen started at 2liters/min via nasal canula. bilateral groins was prepped with chloroprep then draped in the usual sterile fashion. right radial was prepped with chloroprep then draped in the usual sterile fashion. Physician notified. Equipment: 6F - Femoral. Physician arrived. Physician scrubbed in. Immediate Pre-Procedure Time Out. Correct Patient: Yes; Correct Procedure: Yes; Correct Site: Yes; Correct Patient Position: Yes; Correct Supplies: Yes; Dried Flammable Prep: Yes; Blood Products Available: No;. Lidocaine 1% infiltrated to the right groin. Arterial access obtained with micropuncture set. A 6 [place] islander JL4 catheter in over wire. Multiple views taken of left coronary artery. Catheter out. A 6 [place] islander JR4 catheter in over wire. Multiple views taken of right coronary artery. SVG's to RCA visualized and patent. SVG's to Circumflex visualized and patent. GUSTAFSON to LAD visualized. Catheter out. Groin shot taken. Perclose placed without complications. No signs or symptoms of hematoma noted. Sterile dressing applied per usual sterile fashion. Post Procedure: Pulses reassessed and unchanged. PERRLA. Strong, equal hand ecological modeler bilaterally. No VTE prophylaxis required. Lidocaine 1% infiltrated to the right groin. A Perclose ([employer]) was unsuccessful obtaining hemostatsis at the Right Femoral artery insertion site. Medication's Wasted: Heparin = 4000 units. Total IV fluids: 58 mL. 6FR sheath reinserted. Contrast type used: Visipaque 320 mgI/mL, 500 mL bottle. Sheath(s) sutured into position with 2-0 silk and sterile 4x4's and Op-site applied over the site. No oozing or signs and symptoms of hematoma noted. Arterial sheath flushed and connected to tranducer and pressure bag with heparinized saline. Post-op diagnosis: Multivessel CAD. Complications: None. Estimated blood loss: 5mL-10mL. Vital chart was stopped. Procedure completed. Patient transferred by bed to ICU. Access Site Site: Right Femoral artery Sheath Size: 6 Fr Hemostasis Method: Perclose ([employer]) Hemostasis Success: Successful Procedure Medications Start: 1:20 PM Stop: 1:20 PM Medication: Versed Amount: 1 mg Route: I.V. Start: 1:20 PM Stop: 1:20 PM Medication: Fentanyl Amount: 50 mcg Route: I.V. Start: 1:25 PM Stop: 1:25 PM Medication: Versed Amount: 1 mg Route: I.V. Start: 1:25 PM Stop: 1:25 PM Medication: Fentanyl Amount: 50 mcg Route: I.V. Start: 1:34 PM Stop: 1:34 PM Medication: Versed Amount: 1 mg Route: I.V. Start: 1:34 PM Stop: 1:34 PM Medication: Fentanyl Amount: 50 mcg Route: I.V. Start: 1:52 PM Stop: 1:52 PM Medication: Versed Amount: 1 mg Route: I.V. Start: 1:52 PM Stop: 1:52 PM Medication: Fentanyl Amount: 50 mcg Route: I.V. I, the attending physician, have reviewed and verified all procedure medications. Yes, all medications given per verbal order History/Risk Factors Hypertension: No Dyslipidemia: No Peripheral Arterial Disease (PAD): No Myocardial Infarction (ND): No Obesity: No Renal Disease: No Prior Interventions PCI: No CABG: Yes Valve Surgery: No Report Signatures Finalized by Brenda Ni MD on 05/28/2021 11:22 PM
--- NOTE | 2021-05-14 12:00 | ECG_ITS ---
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 Measurements Intervals [place] Rate: 46 P: 53 CO: 193 QRS: 20 QRSD: 89 T: 50 QT: 461 QTc: 404 Interpretive Statements SINUS BRADYCARDIA ST DEVIATION AND MODERATE T-WAVE ABNORMALITY, CONSIDER ANTERIOR ISCHEMIA [-0.1+ mV T-WAVE IN V3/V4] No previous ECG available for comparison Electronically Signed On 05-14-2021 21:26:11 CDT by Cande Gee M.D. [id number]
--- NOTE | 2021-05-14 13:19 | W.PM.OPSUD ---
Surgery/Procedure H&P Update DATE OF PROCEDURE: May 14, 2021 DATE H&P PERFORMED: 05/14/21 H&P UPDATE INFORMATION: I have reviewed H&P completed within last 30 days, I have examined patient prior to procedure and No changes to prior documentation PREOP DIAGNOSIS: Unstable angina with history of bypass PATIENT REASSESSED PRIOR TO SEDATION, WITH NO CHANGE NOTED: Yes PHYSICAL EXAM: alert, oriented x 3 and clear to auscultation bilaterally AIRWAY EVAL/ANESTHESIA PLAN: ASA II and Risks, benefits & alternatives of sedation and/or procedure discussed ADDITIONAL INFORMATION: Patient has been explained all risk benefit and alternative for the procedure he understand the risk for stroke arrhythmia contrast-induced nephropathy risk for dialysis major minor bleed hematoma infection. He would like to proceed with it.
[2021-05-14 13:29] LABS: Partial Thromboplastin Time 81.2 SECONDS (23.9-36.7)
[2021-05-14 13:34] LABS: Troponin 5 6HR 9.44 ng/L (0-15)
[2021-05-14 13:36] LABS: Troponin 5 6HR Delta -0.56 ng/L (0-12)
[2021-05-14] MEDS: sodium chloride 0.9% 1,000 ML 100 ML IV ×2 (14:25→23:39)
[2021-05-14] MEDS: pantoprazole 40 mg SDV IVP (15:37)
--- NOTE | 2021-05-14 15:42 | PC.NURSE ---
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
[2021-05-14] MEDS: ondansetron 2 mg/ML SDV 2 mL 4 MG IVP ×2 (15:56→16:02)
--- NOTE | 2021-05-14 16:44 | PC.NURSE ---
here to exam pt and to verify medications at this time remains on nitro gtt at this time remains SB
[2021-05-14] MEDS: isosorbide mononitrate 20 mg Tablet 10 MG PO (16:56)
[2021-05-14] MEDS: meclizine 25 mg tablet PO ×2 (16:56→20:02)
[2021-05-14] MEDS: diazePAM 5 mg Tablet PO (17:26)
--- NOTE | 2021-05-14 17:43 | PC.NURSE ---
sheath intact right groin
--- NOTE | 2021-05-14 17:57 | PC.NURSE ---
less nausea at this time and no further double vision according to pt weaned off nitro at this time evening meal served imdur started and zofran, valium, other medication ptt now ordered pending sheath removal after chest pain and nausea under control
--- NOTE | 2021-05-14 18:22 | NUR.SHIFT ---
Shift Note Frequent safety and comfort rounds continue. Orders and/or nursing care completed as indicated. Patient monitored for response to intervention and treatment(s). Education provided includes[]. Patient and/or retention representative [ResponseToTeaching]. Will continue to monitor. lab here to draw blood for ptt. no further c/o jaw pain at this time
[2021-05-14 18:52] LABS: Partial Thromboplastin Time 25.8 SECONDS (23.9-36.7)
[2021-05-14] MEDS: acetaminophen 325 mg Tablet 650 MG PO (23:39)
[2021-05-15] VITALS (44 sets, daily range): BP systolic 80–144; BP diastolic 47–70; PULSE 39–70; RESP 5–23; TEMP 36.7–36.8; O2SAT 90–98
[2021-05-15 05:26] LABS: Basophils % 0.2 %; Eosinophils # 0.1 10^3/uL (0.0-0.8); Eosinophils % 2.7 %; Hematocrit 40.4 % (42.0-52.0); Hemoglobin 13.1 g/dL (11.7-16.6); Lymphocytes # 1.2 10^3/uL (0.8-4.8); Lymphocytes % 23.8 %; Mean Corpuscular HGB Conc 32.4 g/dL (30.0-36.0); Mean Corpuscular Hemoglobin 32.8 pg (28.0-34.0); Mean Platelet Volume 10.7 fL (7.4-10.4); Monocytes # 0.6 10^3/uL (0.2-0.9); Monocytes % 12.1 %; Neutrophils # 3.18 10^3/uL (1.8-7.7); Neutrophils % 60.8 %; Nucleated Red Blood Cells % 0 %; Platelet Count 141 10^3/cmm (130-400); Red Cell Distribution Width 12.8 % (12.1-15.1); White Blood Count 5.2 10^3/uL (4.0-10.0)
[2021-05-15 05:42] LABS: Chol HDL Ratio 2.78 mg/dL (1.0-5.00); Cholesterol 103 mg/dL (0-200); HDL Cholesterol 37 mg/dL (60-100); LDL Cholesterol Calculated 41 mg/dL (50-129); LDL HDL Ratio 1.11 RATIO (0.00-3.22); Triglycerides 124 mg/dL (0-150)
[2021-05-15 05:56] LABS: Anion Gap 11.5 (5-19); Blood Urea Nitrogen 15 mg/dL (8-23); Calcium 8.5 mg/dL (8.5-10.5); Carbon Dioxide 23 mmol/L (22-29); Chloride 110 mmol/L (98-107); Glomerular Filtration Rate 85.2 mL/min (90-130); Glucose 75 mg/dL (65-115); Osmolality Calculated 290 mOsm/kg (285-295); Potassium 4.5 mmol/L (3.5-5.1); Sodium 140 mmol/L (136-145); Thyroid Stimulating Hormone 0.23 uIU/mL (0.27-4.20)
--- NOTE | 2021-05-15 06:12 | PC.NURSE ---
Patient shealth pulled around 2100. Slight drainage noted on dressing, otherwise no hematoma, swelling or pain at sight. Lower right extremity with good pedal pulses, and skin tone appropriate for patient. Patient noted to be bradycardic, and systolic pressures in the 90's, with MAP in 60's, periodicity throughout shift.
[2021-05-15] MEDS: acetaminophen 325 mg Tablet 650 MG PO (06:17)
[2021-05-15] MEDS: levothyroxine 200 mcg Tablet PO (06:17)
--- NOTE | 2021-05-15 07:00 | XRR_ITS ---
PROCEDURE INFORMATION: Exam: XR Chest Exam date and time: 05/15/2021 7:00 AM Age: 65 years old Clinical indication: Dyspnea; Additional info: Follow up infiltrate TECHNIQUE: Imaging protocol: XR of the chest. Views: 1 view. COMPARISON: CR (CHEST, ) 05/14/2021 6:07 AM FINDINGS: Lungs: Unremarkable. No consolidation. Pleural spaces: Unremarkable. No pleural effusion. No pneumothorax. Heart/Mediastinum: Unremarkable. No cardiomegaly. Bones/joints: Unremarkable. XR/XR chest 1V portable [id number] IMPRESSION: No acute findings. Radiation Dose CTDIVOL = (mGy): DLP = (mGy-cm)
[2021-05-15 08:15] LABS: Free T4 Free Thyroxine 1.13 ng/dL (0.82-1.77)
[2021-05-15] MEDS: morphine 4 mg/mL SDV 1 mL 2 MG IVP (08:33)
[2021-05-15] MEDS: meclizine 25 mg tablet PO (08:41)
[2021-05-15] MEDS: isosorbide mononitrate 20 mg Tablet 10 MG PO (08:41)
[2021-05-15] MEDS: ezetimibe 10 mg Tablet PO (08:41)
[2021-05-15] MEDS: aspirin 325 mg EC Tablet PO (08:41)
[2021-05-15] MEDS: pantoprazole 40 mg SDV IVP (08:41)
--- NOTE | 2021-05-15 09:07 | PM.PN ---
Subjective Subjective: Interval history: Patient feels well and denies nay complaints. He walked around the ICU without any complaints. He had sharp jaw pain and lost a tooth. No jaw pain since. Left precordial chest pain (reproducible conmponent) still present but lower left precordial chest pain resolved Medications: Reviewed: Yes Vitals/I&O/Wt Last Vital Signs Temp 98.1 F 05/15/21 04:00 Pulse 70 05/15/21 08:50 Resp 16 05/15/21 08:50 BP 108/47 05/15/21 04:00 Pulse Ox 94 05/15/21 08:50 05/14/21 05/15/21 05/15/21 22:59 06:59 14:59 Intake Total 666.825 / 4782.086 9769 / 2666.825 Output Total 800 / 800 800 / 1600 Balance -133.175 / 866.825 200 / 1066.825 Weight last 48 hrs Weight 248 lb Weight 248 lb Weight 248 lb Physical Exam Narrative: EXAM NARRATIVE: GENERAL: obese man lying in bed in no acute distress HEENT: Pupils equal round reactive to light. No pallor or icterus. NECK: central trachea, No JVD. No carotid bruit. CARDIOVASCULAR SYSTEM: S1-S2 regular. . No murmur rubs or gallops. RESPIRATORY SYSTEM: Chest clear to auscultation. No wheezes rhonchi or rubs heard. No use of accessory muscles. Midline sternotomy scar noted. ABDOMEN: Soft, nontender and nondistended. Normal bowel sounds present. EXTREMITIES: No cyanosis or clubbing. No edema. No signs of chronic venous insufficiency. Right knee in brace ELECTRICAL AUTOMATION ENGINEER: Patient is alert oriented ?3. No focal neurological deficits. SKIN: Normal turgor and temperature. No breakdown, rash or nail changes noted. PSYCH: Normal insight and judgment. Data : 05/15/21 04:43 05/15/21 04:43 A&P Assessment and plan (1) Chest pain: Chest pain and Jaw pain Patient present presented with chest pain with 2-day history of intermittent jaw pain. There is some reproducible chest pain which is different from chest pain that he had yesterday. -Patient had a normal stress test a year or 2 ago due to atypical transient chest pain that was thought to be musculoskeletal. -Given patient's history there is concern for unstable angina. He was treated as non-ST elevation ACS -Patient received aspirin 324 mg on arrival to ER and has been started on heparin drip. -Now off nitroglycerin drip. -Records from [facility] are pending. Echo did not reveal any significant regional wall motion abnormalities. LV function is preserved. -I discussed with patient option of coronary angiogram versus repeating another stress test. -Given the fact that he has had a normal stress test before I think it would be prudent to do coronary angiogram at this point. Patient and are agreeable with the plan. -I discussed the patient with Dr. Ni and patient underwent coronary angiogram yesterday via right femoral. -Patent GUSTAFSON to LAD, SVG to OM and RCA. small diffusely disease ramus (small for any intervention). -Medical management opted for. -Off nadolol given bradycardia; will hold bumex and potassium on discharge -start on low dose isodril 2.5 mg PO BID( advised to track BP and HR and hold if BP running low) Status: Acute Qualifiers: Chest pain type: other chest pain Qualified Code(s): R07.89 - Other chest pain (2) CAD (coronary artery disease): Status: Acute Qualifiers: Associated angina: with unstable angina Coronary Disease-Associated Artery/Lesion type: bypass graft [place] vs. transplanted heart: [place] heart Qualified Code(s): I25.700 - Atherosclerosis of coronary artery bypass graft(s), unspecified, with unstable angina pectoris (3) HTN (hypertension): Status: Acute Qualifiers: Hypertension type: primary hypertension Qualified Code(s): I10 - Essential (primary) hypertension (4) Hyperlipidemia: On Pralulent Status: Acute Qualifiers: Hyperlipidemia type: mixed hyperlipidemia Qualified Code(s): E78.2 - Mixed hyperlipidemia (5) Statin intolerance: Status: Acute Additional A&P Information Chronic kidney disease (Cr-1.3 today; baseline slightly increased) Bradycardia :HR high 30's-low 50's on telemetry; hold nadolol; may consider 2 week event monitor. Patient would like to do that with his shaping machine operator at [facility]'s disease [facility] Thank you for allowing me to participate in patient's care. Please feel free to call with questions or concerns. Attestations Medical Necessity Statement*: stable to be discharged from cardiac standpoint Time Spent in Patient Care: 16 - 35 minutes (>than 50% of time spent in counselling and/or direct pt care on unit). Coding Level of Care Code Acute Linux Systems Engineer for Giovannig Fwd Diagnoses Chest pain R07.89 Chest pain type: other chest pain CAD (coronary artery disease) I25.700 Associated angina: with unstable angina Coronary Disease-Associated Artery/Lesion type: bypass graft [place] vs. transplanted heart: [place] heart HTN (hypertension) I10 Hypertension type: primary hypertension Hyperlipidemia E78.2 Hyperlipidemia type: mixed hyperlipidemia Statin intolerance Z78.9
--- NOTE | 2021-05-15 09:54 | PC.CHAP ---
Pastoral Care Encounter/Spiritual Assessment Type of Contact [] Declined ep tech visit [] Patient/Family/Request visit [] Outpatient visit [] Follow-up visit [] Physician referral [] Code/Alert [x] Routine visit [] Staff referral [] Actively dying [] Patient sleeping [] Family support [] [] Out of room [] Palliative care [] [] Receiving care in room [] Pre-surgical visit [] Trauma [] Long length of stay [x] ICU visit [] Other: Relational/Emotional Strength [x] Patient feels connected with others/family/visitors/staff [] Distress [] Loneliness/isolation [] Abandonment Spirituality of Patient [x] Person of Maddie [] Attends Scientology of their Maddie [] Believes in Prayer [] Reads Bible or Orthodox materials [] There are Spiritual issues to be addressed Bag Machine Operator Interventions [x] Prayer [] Active listening [] Non-anxious presence [] Spiritual/emotional support [] Crisis/trauma care [] Spiritual counseling [] Bereavement support [] Provided bereavement packet [] Provided Bible/devotional materials [] Provided toy/stuffed animal, coloring book to patient or family member [] Provided Communion [] Anointing/[place] [] Salvation [x Completed spiritual assessment [] Other: Impact on Illness or Injury [] Angry [] Fearful [] Anxious [] Often cries [] Exhaustion [] Unable to work [] Unable to attend rastafarian [] Unable to walk/stand [] Unable to read [] Unable to drive [] Unable to eat/drink [] Unable to sleep [] Unable to be with family [] Patient intubated [] Other: Summary Time spent with patient 10 min
[2021-05-15] MEDS: morphine 4 mg/mL SDV 1 mL 1 MG IVP (10:02)
--- NOTE | 2021-05-15 10:29 | PM.DCS ---
Discharge Providers Date of Admission: 05/14/21 09:00 Date of Discharge: May 15, 2021 Attending Provider at Admission: Jia Hedrick MD Attending Provider at Discharge: Brenda Douglas MD Diagnoses at Discharge Discharge Diagnosis (1) Chest pain: Status: Acute Qualifiers: Chest pain type: other chest pain Qualified Code(s): R07.89 - Other chest pain (2) CAD (coronary artery disease): Status: Acute Qualifiers: Associated angina: with unstable angina Coronary Disease-Associated Artery/Lesion type: bypass graft [place] vs. transplanted heart: [place] heart Qualified Code(s): I25.700 - Atherosclerosis of coronary artery bypass graft(s), unspecified, with unstable angina pectoris (3) HTN (hypertension): Status: Acute Qualifiers: Hypertension type: primary hypertension Qualified Code(s): I10 - Essential (primary) hypertension (4) Hyperlipidemia: Status: Acute Qualifiers: Hyperlipidemia type: mixed hyperlipidemia Qualified Code(s): E78.2 - Mixed hyperlipidemia (5) Statin intolerance: Status: Acute Reason for Visit Reason for Visit: chest pain Hospital Course Hospital Course John Blue is a 65 year old male with past medical history of 4 vessel CABG 4 years ago, asthma, bilateral hip replacement, 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 He states the pain woke him up this morning while he was asleep around 4 AM. It was mainly occurring in the right side of his jaw and back of the teeth. He says he has had this pain about three times in the last 2 days however at first it lasted a couple hours, the second time it lasted 15 minutes and now the third time it is intermittent comes and goes. It is on both sides of the sternum in the middle of his chest. Describes it as a burning/pressure-like pain. He was given three nitros on route which decreased the intensity but the pain did not go away completely. He says he has nausea at baseline and therefore takes Zofran at home and Antivert daily for his M?ni?re's therefore he is unable to say if the nausea is associated with his chest pain or not. He also does mention that about 6 months ago that he started passing out but is unsure why. He sees a joy operator helper in [place] and his name is Dr. Monk. Him and his live in [place]. He denies abdominal pain, shortness of breath, leg swelling, cough at this time when seen. At this current time patient is on a nitro drip and states he is having chest pain 2 out of 10 in intensity. Pain is not associated with movement or taking deep breaths. He also mentions to me he has had a 50 pound weight loss in the last few months which was intentional. ED course: Blood pressure 100/55, pulse rate 44, respirate 22, temperature 97.7, saturating 98% on room air. While he was in the ER he was given a nitro patch and his blood pressure dropped to 80/50. He had two recurrences of pain during that time as well. There were ST changes in V1 to V3. First troponin was negative. There was also a transient first-degree heart block which resolved on the second EKG. Patient was then placed on a nitro drip and heparin drip was also started. Echo was ordered stat and joy operator helper on-call was called. There were two EKGs done showing sinus bradycardia with heart rate of 40s. Hospital course Patient was seen by cardiology and was taken for angiogram shortly. Case was discussed with solaris administrator. Results are as follows Patent GUSTAFSON to LAD, SVG to OM and RCA. small diffusely disease ramus (small for any intervention). It was decided to present to manage the patient medically. His medical advice held at discharge due to his bradycardia. Bumex and potassium were also held at discharge. He was started on isosorbide 2.5 p.o. twice daily. He was also advised to check his blood pressure and heart rate and hold off if BP running low. Patient would like to follow-up with his joy operator helper Dr. Monk in [place]. He was discharged home in a very stable condition today. For patients tooth pain he was discharged on Augmentin for 7 days. Physical Exam Narrative: EXAM NARRATIVE: General: Alert oriented x3, seen in ICU bed 7. Appearing comfortable. HEENT: Normocephalic, atraumatic, EOMI, breathing room air. Cardio: Regular rate rhythm., normal S1-S2, no murmurs rubs gallops, mid sternotomy scar noted. Respiratory: Good bilateral air entry, no wheezes no rhonchi appreciated GI: Abdomen soft, nontender, nondistended, bowel sounds + Behavior: Appropriate and cooperative Extremities: No cyanosis, trace edema bilateral lower extremities, Femoral sheath area insertion site appears clean. No fluctuance noted. Discharge Data Data Completed and Pending: Completed Studies During Hospitalization Category Date Time Status XR chest 1V vita ble [id number] Routine Exams 05/15/21 07:00 Completed XR chest 1V vita ble [id number] Stat Exams 05/14/21 05:24 Completed Pending at discharge Category Date Time Status PARALEGAL SPECIALIST request for service Urgent Exams 05/14/21 11:02 Taken Basic Metabolic P scott AM LABS Lab 05/16/21 04:00 Ordered Basic Metabolic P scott AM LABS Lab 05/17/21 04:00 Ordered Complete Blood Co unt w/Auto AM LABS Lab 05/16/21 04:00 Ordered Complete Blood Co unt w/Auto AM LABS Lab 05/17/21 04:00 Ordered Magnesium AM LABS Lab 05/16/21 04:00 Ordered Magnesium AM LABS Lab 05/17/21 04:00 Ordered Platelet Count Q2 D Lab 05/16/21 04:00 Ordered Platelet Count Q2 D Lab 05/18/21 04:00 Ordered CV. echo complete * [id number] Stat Ultrasound 05/14/21 08:12 Taken Labs from last 24 hours 05/15/21 05/15/21 05/15/21 04:43 04:43 04:43 WBC RBC Hgb Hct MCV MCH MCHC RDW Plt Count MPV Neut % (Auto) Lymph % (Auto) [place] % (Auto) Eos % (Auto) Baso % (Auto) Neut # (Auto) Lymph # (Auto) [place] # (Auto) Eos # (Auto) Baso # (Auto) Nucleated RBC % (a uto) Nucleated RBCs # APTT Sodium 140 Potassium 4.5 Chloride 110 H Carbon Dioxide 23 Anion Gap 11.5 BUN 15 Creatinine 0.9 GFR Calculation 85.2 L Glucose 75 Calculated Osmolal ity 290 Calcium 8.5 Magnesium 2.0 Troponin T Hi Sens 6Hr Troponin T Hi Sens 6Hr Delta Triglycerides 124 Cholesterol 103 LDL Cholesterol, C alc 41 L HDL Cholesterol 37 L LDL/HDL Ratio 1.11 Cholesterol/HDL Ra juan david 2.78 TSH 0.23 L Free T4 1.13 05/15/21 05/14/21 05/14/21 04:43 18:27 12:11 WBC 5.2 RBC 4.00 L Hgb 13.1 Hct 40.4 L MCV 101.0 H MCH 32.8 MCHC 32.4 RDW 12.8 Plt Count 141 MPV 10.7 H Neut % (Auto) 60.8 Lymph % (Auto) 23.8 [place] % (Auto) 12.1 Eos % (Auto) 2.7 Baso % (Auto) 0.2 Neut # (Auto) 3.18 Lymph # (Auto) 1.2 [place] # (Auto) 0.6 Eos # (Auto) 0.1 Baso # (Auto) 0.0 Nucleated RBC % (a uto) 0 Nucleated RBCs # 0.0 APTT 25.8 D 81.2 H D Sodium Potassium Chloride Carbon Dioxide Anion Gap BUN Creatinine GFR Calculation Glucose Calculated Osmolal ity Calcium Magnesium Troponin T Hi Sens 6Hr Troponin T Hi Sens 6Hr Delta Triglycerides Cholesterol LDL Cholesterol, C alc HDL Cholesterol LDL/HDL Ratio Cholesterol/HDL Ra juan david TSH Free T4 05/14/21 12:10 WBC RBC Hgb Hct MCV MCH MCHC RDW Plt Count MPV Neut % (Auto) Lymph % (Auto) [place] % (Auto) Eos % (Auto) Baso % (Auto) Neut # (Auto) Lymph # (Auto) [place] # (Auto) Eos # (Auto) Baso # (Auto) Nucleated RBC % (a uto) Nucleated RBCs # APTT Sodium Potassium Chloride Carbon Dioxide Anion Gap BUN Creatinine GFR Calculation Glucose Calculated Osmolal ity Calcium Magnesium Troponin T Hi Sens 6Hr 9.44 Troponin T Hi Sens 6Hr Delta -0.56 L Triglycerides Cholesterol LDL Cholesterol, C alc HDL Cholesterol LDL/HDL Ratio Cholesterol/HDL Ra juan david TSH Free T4 Vitals: Last Vital Signs Temp 98.1 F 05/15/21 04:00 Pulse 45 L 05/15/21 10:00 Resp 15 05/15/21 10:15 BP 124/60 05/15/21 10:15 Pulse Ox 94 05/15/21 08:50 Discharge Plan Discharge Patient Disposition: Home Condition: Stable Prescriptions: New Augmentin 875-125 mg tablet 1 tab PO BID Qty: 10 RF: 0 Isordil Titradose 5 mg tablet 2.5 mg PO BID Qty: 20 RF: 0 Continued ondansetron HCl 8 mg tablet 8 mg PO DAILY RF: 0 bupropion HCl 75 mg tablet 150 mg PO BID RF: 0 levothyroxine 200 mcg tablet See Rx Instructions .ROUTE .COMPLEX RF: 0 diazepam 5 mg tablet 5 - 10 mg PO DAILY RF: 0 ezetimibe 10 mg tablet 10 mg PO DAILY RF: 0 Restasis 0.05 % dropperette 1 drp ophthalmic (eye) BID RF: 0 tadalafil 5 mg tablet 5 mg PO DAILY PRN (Reason: Erectile Dysfunction) RF: 0 Praluent Pen 150 mg/mL pen injector 150 mg SUBCUT Q14D MDD see pharmacy comment RF: 0 levothyroxine 100 mcg Tablet See Rx Instructions .ROUTE .COMPLEX RF: 0 aspirin 325 mg Tablet,Delayed Release (Dr/Ec) 325 mg PO DAILY RF: 0 meclizine 25 mg Tablet 100 mg PO QID RF: 0 albuterol sulfate 90 mcg/actuation HFA aerosol inhaler 2 puff INHALATION Q6H PRN (Reason: Shortness Of Breath) RF: 0 Refresh Optive Tomas-3 (PF) 0.5-1-0.5 % Dropperette 1 drp OPHTHALMIC (EYE) BID RF: 0 Held bumetanide 1 mg tablet 1 mg PO DAILY RF: 0 Hold Instructions: Resume on 06/02/21. potassium chloride 20 mEq tablet extended release See Rx Instructions .ROUTE .COMPLEX RF: 0 Hold Instructions: Resume on 06/02/21. Discontinued nadolol 40 mg tablet 40 mg PO DAILY MDD see pharmacy comment RF: 0 Discharge Orders: Discharge Order (Routine); Ordered 05/15/21 Ordered By: Brenda Douglas Referrals: Avis Jolly FNP [Nurse Practitioner] - 05/22/21 9:45 am Discharge Diet: Cardiac Discharge Activity: Increase activity as tolerated Patient Instructions: Isosorbide Dinitrate (By mouth), Amoxicillin/Clavulanate Potassium (By mouth) (Augmentin, Augmentin..., Hypothyroidism (DC), Angiogram (DC), Opioid Safety Discharge Attestations Time Spent in Discharge Care*: less than 30 min Quality Metrics Clinical Quality Measures During this hospital stay, did patient experience: None Coding Level of Care Code Acute Chg FW DC note Diagnoses Chest pain R07.89 Chest pain type: other chest pain CAD (coronary artery disease) I25.700 Associated angina: with unstable angina Coronary Disease-Associated Artery/Lesion type: bypass graft [place] vs. transplanted heart: [place] heart HTN (hypertension) I10 Hypertension type: primary hypertension Hyperlipidemia E78.2 Hyperlipidemia type: mixed hyperlipidemia Statin intolerance Z78.9
--- NOTE | 2021-05-15 11:24 | PC.NURSE ---
1115 d/c home with , and instructions. stated they would not keep f/u appt. with asif jackson d/t having appt. with their it web development consultant in [place]. pt. made a dentist appt in [place], for today, for broken tooth. also stated hewould chck with his it web development consultant re: med changes. instructed to keep close watch on blood pressure and to call here for any questions, jerome. with groin site. dressing changed prior to departure, with no oozing when old dressing with red drainage on it removed.
== END 2021-05-15 11:15 | disposition home or self-care (01) | DRG 287 ==
LOC: ER 08:54 → ICU 09:38
PROVIDERS: Emergency Medicine; Internal Medicine Cardiovascular Disease; Admitting Provider Internal Medicine; Emergency Provider Emergency Medicine; Visit Provider Internal Medicine
PROC: B2131ZZ Fluoroscopy of Multiple Coronary Artery Bypass Grafts using Low Osmolar Contrast (ICD-10-PCS; principal; 2021-05-14 13:00)
DX: I25.110 Atherosclerotic heart disease of native coronary artery with unstable angina pectoris (principal); Z95.1 Presence of aortocoronary bypass graft; Z96.643 Presence of artificial hip joint, bilateral; E78.2 Mixed hyperlipidemia; J45.909 Unspecified asthma, uncomplicated; Z87.891 Personal history of nicotine dependence; E03.9 Hypothyroidism, unspecified; I12.9 Hypertensive chronic kidney disease with stage 1 through stage 4 chronic kidney disease, or unspecified chronic kidney disease; N18.9 Chronic kidney disease, unspecified; Z79.51 Long term (current) use of inhaled steroids
CPT/HCPCS: 36415; 71045; 80048; 80053; 80061; 83690; 83735; 83880; 84145; 84439; 84443; 84484; 85025; 85610; 85730; 87426; 93005; 93306; 93455; 94664; 96365; 96366; 96367; 96375; 99291; 99292; C1760; C1769; C1887; C1894; C9113; J1644; J2250; J2270; J2405; J3010; J3490; J7030; J8597; Q9967